=== PATIENT | female | born 1945 | race Caucasian/White ===

== ENCOUNTER 2019-02-22 14:58 | Inpatient (IN) | payer MEDICARE, BC ==
[~2019-02-22] VITALS: Ht 160 cm; Wt 70.1 kg
[2019-02-22] MEDS ORDERED: COREG 6.256.25 MG/TA PO (16:08)
[2019-02-22] MEDS ORDERED: NORCO 325 MG-51 TAB PO (16:10)
[2019-02-22] MEDS ORDERED: TYLENOL 500MG500 MG PO (16:11)
[2019-02-22] MEDS ORDERED: ASPIRIN 81M81 MG/TA2 PO (16:13)
[2019-02-22] MEDS ORDERED: CALCIUM CARBON650 M2 PO (16:14)
[2019-02-22] MEDS ORDERED: CATAPRES0.2 MG PO (16:15)
[2019-02-22] MEDS ORDERED: PREMARIN .3MG0.3 MG PO (16:18)
[2019-02-22] MEDS ORDERED: MAXZIDE-25MG TA1 TAB PO (16:22)
[2019-02-22] MEDS ORDERED: BONIVA150 MG PO (16:24)
[2019-02-22] MEDS ORDERED: COZAAR100 MG PO (16:25)
[2019-02-22] MEDS ORDERED: MAGNESIUM250 M1 PO (16:26)
[2019-02-22] MEDS ORDERED: MOBIC 7.5MG7.5 MG PO (16:28)
[2019-02-22] MEDS ORDERED: METAXALL800 MG PO (16:29)
[2019-02-22] MEDS ORDERED: MULTI VITAMINS1 TAB PO (16:29)
[2019-02-22] MEDS ORDERED: PRILOSEC 20MG20 MG PO (16:30)
[2019-02-22] MEDS ORDERED: SYSTANE BALANCE10 M1 OP (16:32)
[2019-02-22] MEDS ORDERED: TURMERIC500 MG PO (16:35)
[2019-02-22] MEDS ORDERED: DOXYCYCLINE 10100 MG PO (16:37)
[2019-02-22 16:41] VITALS: BP 189/94; PULSE 69; TEMP 98.3
--- NOTE | 2019-02-22 18:30 | NUR ---
Patient has been doing ok since arriving to hospital via EMS. Her pain seems better controlled since her splint was removed and the bucks traction placed. IVF's infusing. She had one dose of morphine and is resting at this time. She has not vomitted anymore since first arriving to the hospital. Oriented patient to room. She is more alert at this time. She will be having surgery tomorrow. She is aware she is NPO after midnight but since she has had continuous N/V since she got her first dose of pain medications this morning, she is not wanting to eat at this time. No other changes at this time. Call light within reach.
[2019-02-22 19:42] VITALS: BP 158/63; PULSE 67; TEMP 98
--- NOTE | 2019-02-22 20:30 | NUR ---
Pt. laying in bed at this time. Pt. is A&OX3, assessment complete. IV to rt. forearm patent. Pt. reports nausea not as bad but still there. Pt. would like to hold off on taking pills at this time. [place] traction to rle. Pt. denies further needs at this time. Call light within reach.
[2019-02-22 23:35] VITALS: BP 157/67; PULSE 75; TEMP 99.8
[2019-02-23] VITALS (10 sets, daily range): BP systolic 129–181; BP diastolic 62–86; PULSE 60–79; TEMP 72–98.9
[2019-02-23 06:57] LABS: BASO % 0.2 % (0.0-2.0); EOS # 0.1 (0.0-0.7); EOS % 1.2 % (0-4.0); GRAN # 8.2 (1.4-6.5); GRAN % 72.4 % (42.2-75.2); HEMATOCRIT 40.1 % (37.0-47.0); HEMOGLOBIN 13.5 g/dl (12.5-16.0); LYMPH % 17.4 % (20.0-51.0); MEAN CELL VOLUME 91 fl (80.0-100.0); MEAN CORPUSCULAR HEMOGLOBIN 31 pg (27.0-31.0); MEAN CORPUSCULAR HGB CONC 34 g/dl (33.0-37.0); MEAN PLATELET VOLUME 9.3 fl (7.4-10.4); MONO # 0.9 (0.1-0.6); MONO % 8.2 % (1.7-9.3); PLATELET COUNT 275 K/mm3 (130-400); REDCELL DISTRIBUTION WIDTH-CV 13.2 % (11.5-14.5)
[2019-02-23 07:25] LABS: CALCIUM 8.7 mg/dL (8.4-10.2); CREATININE, serum 0.68 (0.52-1.25); MAGNESIUM 1.9 mg/dL (1.6-2.3); POTASSIUM 3.5 mmol/L (3.4-5.0)
--- NOTE | 2019-02-23 07:48 | NUR ---
REPORT FROM ELLA QUINONEZ.
--- NOTE | 2019-02-23 11:13 | NUR ---
HOSPITALIST HAS CLEARED PT FOR SURGERY LATER THIS PM WITH DR. MARTI MEDS GIVEN ORDERED .
--- NOTE | 2019-02-23 17:22 | NUR ---
PT TO ROOM 325 PER BED. WITH REPORT FROM FLORENTIN QUINONEZSHEET MILL SUPERVISOR @ [id number]. PT IS A/O X3, SCD PLACED BILATERALLY. IV TO PUMP. RIGHT LEG WITH 3 PUNCTURE SITES COVERED IN GAUZE AND TEGADERM CDI. PT DENIES PAIN .
--- NOTE | 2019-02-23 19:17 | NUR ---
REPORT TO MARIA L RN.
--- NOTE | 2019-02-23 20:45 | NUR ---
Pt. sitting up in bed at this time. Pt. is A&OX3, assessment complete. INT to lt. hand started. Rt. forearm site discontinued d/t leaking. Dressing to rt. hip CDI. Pt. reports pain at a 3 at this time. Pt. would like pain medication before going to bed. Will give when pt. requests. Pt. denies further needs, at this time. Call light within reach.
[2019-02-24] VITALS (7 sets, daily range): BP systolic 104–142; BP diastolic 49–82; PULSE 64–70; TEMP 97.9–98.3
[2019-02-24 06:13] LABS: HEMATOCRIT 33.5 % (37.0-47.0); HEMOGLOBIN 11.2 g/dl (12.5-16.0)
--- NOTE | 2019-02-24 12:40 | NUR ---
ZAIDA met with the patient to discuss a discharge plan. The pt lives alone in [place] [facility] with a [place] address. The pt's brother has been staying with her since April recovering from health issues. The pt has a cane and walker but does not use them. The pt reports she is active. The pt's PCP is Dr. Fallon and pt receives medications from [facility] in [place] with no difficulties. The pt would like to have home health PT services with [facility] . ZAIDA to fax referral to Ginna ; Miguel from [facility] reports Ginna will review the referral on Tuesday morning. The pt does not have advanced directives in the EMR but reports she does have them completed and designate her son, Freddie . The pt plans to return home with home health or outpatient PT services through [facility]; has transportation home and has a supportive social [place]. ZAIDA will continue to follow.
--- NOTE | 2019-02-24 18:38 | NUR ---
Patient has done well throughout the day. Has been up ambulating with walker, steady gait. Gutiérrez catheter discontinued at 1400, 10 ml aspirated from balloon, tolerated procedure well. Voided this afternoon without difficulty. Patient has been up to recliner for all meals. Patient showered this AM. Redressed sites to right hip/knee with xeroform, gauze and tegader. Denies further needs at this time. Will report off to shift mechanic.
--- NOTE | 2019-02-24 21:39 | NUR ---
PATIENT TAKES HS MEDS INCLUDING NORCO 7.5MG 1 TAB AT THIS TIME. DRSG'S INTACT TO RIGHT KNEE, OUTER KNEE AND RT HIP. REPORTS PAIN 6/10 TO RIGHT LEG. IS ALERT AND ORIENTED X4. SL TO LEFT HAND.
[2019-02-25 03:29] VITALS: BP 115/47; PULSE 64; TEMP 97.9
--- NOTE | 2019-02-25 03:34 | NUR ---
Patient reports pain to right leg 6/10, asking for Harrison. Medicated with Harrison 7.5mg 1 tab po at this time, patient does not want 2 tabs.
--- NOTE | 2019-02-25 06:00 | NUR ---
Takes AM med without problem. Reports good sleep after pain pills.
[2019-02-25 06:18] LABS: BASO % 0.3 % (0.0-2.0); EOS # 0.1 (0.0-0.7); EOS % 1.5 % (0-4.0); GRAN # 5.9 (1.4-6.5); GRAN % 60.8 % (42.2-75.2); LYMPH # 2.5 (1.2-3.4); LYMPH % 26.2 % (20.0-51.0); MEAN CELL VOLUME 93 fl (80.0-100.0); MEAN CORPUSCULAR HGB CONC 33 g/dl (33.0-37.0); MEAN PLATELET VOLUME 9.4 fl (7.4-10.4); MONO % 9.9 % (1.7-9.3); PLATELET COUNT 195 K/mm3 (130-400); RED BLOOD COUNT 3.15 M/mm3 (4.10-5.30); REDCELL DISTRIBUTION WIDTH-CV 13.4 % (11.5-14.5)
[2019-02-25 06:22] LABS: HEMATOCRIT 29.4 % (37.0-47.0); HEMOGLOBIN 9.7 g/dl (12.5-16.0); MEAN CORPUSCULAR HEMOGLOBIN 31 pg (27.0-31.0)
[2019-02-25 06:38] LABS: CALCIUM 9.2 mg/dL (8.4-10.2); CREATININE, serum 0.67 (0.52-1.25); MAGNESIUM 1.5 mg/dL (1.6-2.3); POTASSIUM 3.9 mmol/L (3.4-5.0)
[2019-02-25 07:42] VITALS: BP 117/51; PULSE 59; TEMP 97.5
--- NOTE | 2019-02-25 09:19 | NUR ---
PATIENT UP TO CHAIR. LEGS UP. EATING BREAKFAST. MORNING MEDS GIVEN. MAGNESIUM GIVEN PER DOCTORS ORDERS FOR LOW MAGNESIUM. POTASSIUM EFFER K GIVEN PER POTASSIUM PROTOCOL. DENIES NEED FOR PAIN MEDICATION AT TIME. WILL CONTINUE TO MONITOR.
[2019-02-25 12:37] VITALS: BP 117/43; PULSE 56; TEMP 97.8
[2019-02-25 16:49] VITALS: BP 128/57; PULSE 62; TEMP 98.1
--- NOTE | 2019-02-25 18:29 | NUR ---
patient in chair. legs elevated. took 1 norco for prn pain. states that pain is increasing after ambulating previously. patient refused carvedilol because her bp was too low and she did not feel good early after taking it. no further needs at this time. will continue to monitor.
[2019-02-25 20:36] VITALS: BP 112/55; PULSE 65; TEMP 98.5
[2019-02-26 00:24] VITALS: BP 95/29; PULSE 62; TEMP 98.3
[2019-02-26 04:11] VITALS: BP 109/44; PULSE 60; TEMP 98.1
--- NOTE | 2019-02-26 06:50 | NUR ---
awake resting in bed, bedside shift report received from CRISTIANO Beasley
[2019-02-26 06:59] LABS: HEMOGLOBIN 10.7 g/dl (12.5-16.0); MEAN CELL VOLUME 94 fl (80.0-100.0); MEAN CORPUSCULAR HEMOGLOBIN 31 pg (27.0-31.0); MEAN CORPUSCULAR HGB CONC 33 g/dl (33.0-37.0); MEAN PLATELET VOLUME 9.5 fl (7.4-10.4); PLATELET COUNT 242 K/mm3 (130-400); RED BLOOD COUNT 3.51 M/mm3 (4.10-5.30); REDCELL DISTRIBUTION WIDTH-CV 13.4 % (11.5-14.5)
[2019-02-26 07:01] LABS: HEMATOCRIT 32.9 % (37.0-47.0)
[2019-02-26 07:19] LABS: CALCIUM 9.1 mg/dL (8.4-10.2); CREATININE, serum 0.74 (0.52-1.25); MAGNESIUM 1.5 mg/dL (1.6-2.3); POTASSIUM 3.8 mmol/L (3.4-5.0)
--- NOTE | 2019-02-26 07:20 | NUR ---
assisted up to brush her teeth, then ambulated over and sitting up in chair for breakfast, full assessment completed, see interventions for further info,
[2019-02-26 07:57] LABS: BASOPHIL 1 % (0-2); EOSINOPHIL 2 % (0-4); LYMPHOCYTE 23 % (20.0-51.0); NEUTROPHILS 68 % (42.0-75.2); PLATELET ESTIMATE NORMAL (NORMAL)
[2019-02-26 08:13] VITALS: BP 112/43; PULSE 68; TEMP 98.3
--- NOTE | 2019-02-26 08:30 | NUR ---
physical therapy in and assisted her with ambulating in the pal and now back to bed
--- NOTE | 2019-02-26 09:22 | NUR ---
[facility] for home health services. SW met with the patient to discuss home health options. Patient is agreeable to send referral to [facility]. SW to fax referral. SW will continue to follow.
--- NOTE | 2019-02-26 09:33 | NUR ---
[facility] requested nursing notes; SW faxed notes. SW will continue to follow
[2019-02-26 09:37] VITALS: BP 112/48; PULSE 69
--- NOTE | 2019-02-26 10:10 | NUR ---
c/o pain 11/17 and medicated with hydrocodone 7.5mg 1 tab
--- NOTE | 2019-02-26 11:38 | NUR ---
Dr Tillman and care team in to see patient
[2019-02-26] MEDS ORDERED: SENNA-S 50 MG-81 TAB PO (11:41)
[2019-02-26] MEDS ORDERED: ASPI325T6 PO (11:43)
[2019-02-26] MEDS ORDERED: CATAPRES 0.1MG0.1 MG PO (11:47)
[2019-02-26] MEDS ORDERED: NORCO 325 MG-7.1 TAB PO (11:48)
[2019-02-26 12:44] VITALS: BP 95/49; PULSE 73; TEMP 97.7
--- NOTE | 2019-02-26 14:02 | NUR ---
The pt is to discharge home today, 02/25 with [facility]. ZAIDA faxed discharge orders to [facility] . ZAIDA presented the IM form to the pt; pt understood and signed the form. A copy was provided to the pt; original was placed in the chart. There are no additional needs at this time.
--- NOTE | 2019-02-26 14:10 | NUR ---
medicated with hydrocodone 7.5mg 1 tab and tylenol 325mg for c/os pain to right leg and in anticipation of therapy
--- NOTE | 2019-02-26 14:30 | NUR ---
discharge instructions given to patient, verbalizes understanding
--- NOTE | 2019-02-26 14:39 | NUR ---
discharged per WC
== END 2019-02-26 14:39 | disposition home health service (06) | DRG 481 ==
LOC: SURG 14:58
PROVIDERS: Hospitalist; Physician Assistant; ADMIT Orthopaedic Surgery
PROC: 0QS836Z Reposition Right Femoral Shaft with Intramedullary Internal Fixation Device, Percutaneous Approach (ICD-10-PCS; principal; 2019-02-23 14:15)
DX: M80.051A Age-related osteoporosis with current pathological fracture, right femur, initial encounter for fracture (principal); I38 Endocarditis, valve unspecified; E87.1 Hypo-osmolality and hyponatremia; D62 Acute posthemorrhagic anemia; Z88.5 Allergy status to narcotic agent; K21.9 Gastro-esophageal reflux disease without esophagitis; I10 Essential (primary) hypertension; N95.1 Menopausal and female climacteric states; L08.9 Local infection of the skin and subcutaneous tissue, unspecified; E83.42 Hypomagnesemia
CPT/HCPCS: 99222-AI; 99231-AI; A9284; C1713; C1769; J0690; J0780; J1100; J1170; J2270; J2405; J2704; J3010; J3475; J7030

== ENCOUNTER 2020-08-18 09:20 | Day surgery (SDC) | payer MEDICARE, BC ==
[~2020-08-18] VITALS: Ht 160 cm; Wt 70.3 kg
[2020-08-18] VITALS (11 sets, daily range): BP systolic 102–178; BP diastolic 59–98; PULSE 63–75; TEMP 98.8
[~2020-08-18 09:20] MED LIST: ASPI325T6 PO; ASPIRIN 81M81 MG/TA2 PO; BONIVA150 MG PO; CALCIUM CARBON650 M2 PO; CATAPRES 0.1MG0.1 MG PO; CATAPRES0.2 MG PO; COREG 6.256.25 MG/TA PO; COZAAR100 MG PO; DOXYCYCLINE 10100 MG PO; MAGNESIUM250 M1 PO; MAXZIDE-25MG TA1 TAB PO; METAXALL800 MG PO; MOBIC 7.5MG7.5 MG PO; MULTI VITAMINS1 TAB PO; NORCO 325 MG-51 TAB PO; NORCO 325 MG-7.1 TAB PO; PREMARIN .3MG0.3 MG PO; PRILOSEC 20MG20 MG PO; SENNA-S 50 MG-81 TAB PO; SYSTANE BALANCE10 M1 OP; TURMERIC500 MG PO; TYLENOL 500MG500 MG PO
[2020-08-18 10:11] LABS: HEMATOCRIT 39.7 % (37.0-47.0); HEMOGLOBIN 13.3 g/dl (12.5-16.0); MEAN CELL VOLUME 93 fl (80.0-100.0); MEAN CORPUSCULAR HEMOGLOBIN 31 pg (27.0-31.0); MEAN CORPUSCULAR HGB CONC 34 g/dl (33.0-37.0); MEAN PLATELET VOLUME 9.3 fl (7.4-10.4); PLATELET COUNT 270 K/mm3 (130-400); RED BLOOD COUNT 4.29 M/mm3 (4.10-5.30); REDCELL DISTRIBUTION WIDTH-CV 13.2 % (11.5-14.5)
[2020-08-18] MEDS ORDERED: MAXZIDE-25MG TA1 TAB PO (10:15)
[2020-08-18] MEDS ORDERED: CALCIUM 600 MG1 EAC2 PO (10:17)
[2020-08-18 10:18] LABS: CALCIUM 9.3 mg/dL (8.4-10.2); CREATININE, serum 0.69 (0.52-1.25); POTASSIUM 3.8 mmol/L (3.4-5.0)
[2020-08-18 10:22] LABS: PROTHROMBIN TIME 10.9 SECONDS (9.7-12.8)
[2020-08-18 10:24] LABS: PARTIAL THROMBOPLASTIN TIME 31.1 SECONDS (26.0-37.0)
[2020-08-18] MEDS ORDERED: ONE-A-DAY ESSE1 EACH PO (10:31)
[2020-08-18] MEDS ORDERED: MOBIC15 MG PO ×2 (10:32→10:33)
[2020-08-18] MEDS ORDERED: PROLIA60 MG/ML SQ (10:32)
[2020-08-18] MEDS ORDERED: PREMARIN .3MG0.3 MG PO (10:33)
[2020-08-18] MEDS ORDERED: COREG12.5 MG PO (10:34)
[2020-08-18] MEDS ORDERED: NORVASC 5MG5 MG/TAB PO (10:34)
[2020-08-18] MEDS ORDERED: VITAMIN D31000 I1 PO (10:35)
[2020-08-18] MEDS ORDERED: ASPIRIN E.C. 8181 MG PO (10:54)
--- NOTE | 2020-08-18 11:49 | NUR ---
SEE MERGE DOCUMENTATION FOR MEDICATION ADMINISTRATION TIMES AND INTRA/POST PROCEDURE SEDATION ASSESSMENTS. RIGHT HAND BARBEAU TEST POSITIVE.
--- NOTE | 2020-08-18 16:30 | NUR ---
Air from TR band was removed in 2 ml increments with no bleeding from rt radial puncture site. Site was dressed with 2x2, bandaid and wrist wrapped with coban for support. Pt expresses understanding of limb use restrictions other DC instructions. IV DC'd with catheter intact, bleeding controlled at site. Pt is steady on feet in room. Has tolerated PO without issue. She is assisted out to friend's car by wheelchair with personal belongings.
== END 2020-08-18 16:32 | disposition home or self-care (01) ==
LOC: COL.CAR 09:20
PROVIDERS: Internal Medicine Cardiovascular Disease
DX: I25.10 Atherosclerotic heart disease of native coronary artery without angina pectoris (principal)
CPT/HCPCS: C1887; J1644; J2250; J7030; Q9967

== ENCOUNTER 2021-05-11 14:36 | Inpatient (IN) | payer MEDICARE, BC ==
[~2021-05-11] VITALS: Ht 157.5 cm; Wt 70.0 kg
[~2021-05-11 14:36] MED LIST changes: +ASPIRIN E.C. 8181 MG PO; +CALCIUM 600 MG1 EAC2 PO; +COREG12.5 MG PO; +MOBIC15 MG PO; +NORVASC 5MG5 MG/TAB PO; +ONE-A-DAY ESSE1 EACH PO; +PROLIA60 MG/ML SQ; +VITAMIN D31000 I1 PO
[2021-05-11 15:28] LABS: BASO # 0.1 K/mm3 (0.0-0.2); BASO % 0.8 % (0.0-2.0); EOS # 0.4 K/mm3 (0.0-0.7); EOS % 6.4 % (0-4.0); GRAN # 2.9 K/mm3 (1.4-6.5); HEMOGLOBIN 12.1 g/dl (12.5-16.0); LYMPH # 2.3 K/mm3 (1.2-3.4); LYMPH % 36.7 % (20.0-51.0); MEAN CELL VOLUME 95 fl (80.0-100.0); MEAN CORPUSCULAR HEMOGLOBIN 32 pg (27.0-31.0); MEAN CORPUSCULAR HGB CONC 34 g/dl (33.0-37.0); MEAN PLATELET VOLUME 9.4 fl (7.4-10.4); MONO # 0.6 K/mm3 (0.1-0.6); MONO % 9.6 % (1.7-9.3); PLATELET COUNT 240 K/mm3 (130-400); RED BLOOD COUNT 3.78 M/mm3 (4.10-5.30); REDCELL DISTRIBUTION WIDTH-CV 13.2 % (11.5-14.5)
[2021-05-11 15:30] LABS: HEMATOCRIT 35.9 % (37.0-47.0)
[2021-05-11 15:41] LABS: INR 1.1 (0.8-3.0); PROTHROMBIN TIME 11.9 SECONDS (9.7-12.8)
[2021-05-11 16:03] LABS: ALBUMIN 3.9 gm/dL (3.4-4.8); BILIRUBIN,TOTAL 0.5 mg/dL (0.2-1.2); CALCIUM 9.1 mg/dL (8.4-10.2); POTASSIUM 3.7 mmol/L (3.5-4.5); TOTAL PROTEIN 6.4 gm/dL (6.2-8.1)
[2021-05-11 16:34] LABS: COLLECTION METHOD CATHETER
[2021-05-11 16:40] LABS: PH 7 (5-8); SQUAMOUS EPITHELIAL 0-2 /hpf; URINE APPEARANCE Clear; URINE BACTERIA Rare /hpf; URINE BILIRUBIN Negative (NEGATIVE); URINE BLOOD Negative (NEGATIVE); URINE COLOR Straw; URINE GLUCOSE Negative (NEGATIVE); URINE KETONE Negative (NEGATIVE); URINE LEUKOCYTE ESTERASE Negative (NEGATIVE); URINE NITRATE Negative (NEGATIVE); URINE PROTEIN(semi-quant) Negative (NEGATIVE); URINE UROBILINOGEN Negative (NEGATIVE)
[2021-05-11 17:19] VITALS: BP 158/72; PULSE 62; TEMP 98.1
--- NOTE | 2021-05-11 18:00 | NUR ---
PATIENT ADMITED INTO ROOM 347 FROM ER WITH LEFT HIP FX. LLE IS INTERNALLY ROTATED AND PATIENT HAVING SEVERE PAIN. PATIENT PLACED IN TRACTION WITH 10 LBS WEIGHT PER VERBAL INSTRUCTIONS. PATIENT GIVEN LOTS OF PAIN MEDS IN ER AND RECEIVED IV PAIN MEDS BEFORE TRANSFER TO FLOOR. PATIENT BECAME NAUSEATED WITH MOVEMENT, GIVEN ZOFRAN IN ER. EMESIS BASIN AT BEDSIDE. IV FLUIDS INFUSING INTO RIGHT FORARM IV VIA PUMP. ARTEAGA TO DD WITH MOD AMOUNTS OF CLEAR YELLOW URINE NOTED. HEAD TO TOE ASSESSMENT COMPLETE. PASSENGER CAR UPHOLSTERER APPRENTICE AT BEDSIDE TO OBTAIN VITALS. PLANER OPERATOR / GRADER TO TAKE OVER.
[2021-05-11 19:08] LABS: CREATININE, serum 0.84 mg/dL (0.57-1.11)
[2021-05-11 22:15] VITALS: BP 138/66; PULSE 72; TEMP 97.8
[2021-05-12] VITALS (13 sets, daily range): BP systolic 104–145; BP diastolic 54–70; PULSE 16–71; TEMP 64–981
[2021-05-12] MEDS ORDERED: LIPITOR 10MG10 MG PO (04:11)
--- NOTE | 2021-05-12 06:29 | NUR ---
PT HAD SEVERAL EPISODES OF EMESIS THIS SHIFT, IMPROVED AFTER IV PHENERGAN GIVEN @0345, PAIN CONTROLLED WITH MORPHINE Q2PRN, REMAINS IN 10 LBS BUCKS TRACTION, IVF INFUSING PER PIV @75CC/HR, NPO FOR SURGERY TODAY. ARTEAGA TO DD WITH 1825 CC CLEAR YELLOW URINE OUT THIS SHIFT. PT'S HOME MEDS SENT TO PHARMACY WITH AIRLINE MANAGERIAL SUPERVISOR. VALUABLES SENT TO [facility].
[2021-05-12 06:45] LABS: BASO % 0.2 % (0.0-2.0); EOS % 0.5 % (0-4.0); GRAN # 6.7 K/mm3 (1.4-6.5); GRAN % 76.3 % (42.2-75.2); HEMOGLOBIN 11.5 g/dl (12.5-16.0); LYMPH # 1.3 K/mm3 (1.2-3.4); LYMPH % 14.8 % (20.0-51.0); MEAN CELL VOLUME 94 fl (80.0-100.0); MEAN CORPUSCULAR HEMOGLOBIN 32 pg (27.0-31.0); MEAN CORPUSCULAR HGB CONC 34 g/dl (33.0-37.0); MEAN PLATELET VOLUME 9.6 fl (7.4-10.4); MONO # 0.7 K/mm3 (0.1-0.6); PLATELET COUNT 220 K/mm3 (130-400); RED BLOOD COUNT 3.63 M/mm3 (4.10-5.30); REDCELL DISTRIBUTION WIDTH-CV 13.1 % (11.5-14.5)
[2021-05-12 06:46] LABS: HEMATOCRIT 34.1 % (37.0-47.0)
[2021-05-12 07:18] LABS: CALCIUM 8.4 mg/dL (8.4-10.2); CREATININE, serum 0.7 mg/dL (0.57-1.11); POTASSIUM 3.2 mmol/L (3.5-4.5)
--- NOTE | 2021-05-12 10:32 | NUR ---
PT A/O X3, DR REYNOSO IN TO SEE PT THIS AM. CONSENT SIGNED ON CHART. PT OPTIMIZED FOR SURGERY. PT TO SURGERY AT THIS TIME WITH CRISTÓBAL. ASSESSMENTS CATHERINE, RHONAS, IV TO RW.
--- NOTE | 2021-05-12 11:12 | NUR ---
Collet Gluer met with patient to discuss discharge planning. Patient to have surgery today. Patient lives [place] [facility] and advised she sees Dr. Fallon for primary care. Patient obtains medications from [facility] in [place] with no difficulties. Patient has a walking stick, cane and walker at home and reports she uses her walking stick to walk down her driveway to get the mail. Patient reports she is independent with ADLS. Patient advised she has DPOA-HC completed which designates her son, Freddie. Patient has three sons: Freddie, Eliceo (ph#[phone]), and Kosta. Patient reports Eliceo is the best person to contact. Patient states she plans to return home if able as she reports that she has a lot of family support and many friends who are retired nurses that can provide her with asssitance. Patient states she was used [facility] in the past and would use them again. Patient did state she may be open to post acute rehab if recommended, but feels she will have enough help so she can return home. Discharge Plan: Home pending PT/OT recommendations
--- NOTE | 2021-05-12 14:54 | NUR ---
PT TO ROOM 347 PER BED WITH REPORT FROM SANDRA KNOCK UP ASSEMBLER@[id number], LEFT HIP CDI WITH GAUZE AND TEGADERM X3. TEDS PLACED BILATERALLY. IV TO PUMP PER ORDERS. PT IS A/O X3. PTS FRIEND AT BEDSIDE.
--- NOTE | 2021-05-12 23:03 | NUR ---
IV ACCESS HARD TO OBTAIN X 5 STICKS, PT REQ TO TAKE ANTIBOTIC ORAL. SHARON JIMÉNEZ CALLED AND APPOVES TO CONVERT TO ORAL. NO IV.
[2021-05-13 03:24] VITALS: BP 115/55; PULSE 70; TEMP 98.5
[2021-05-13 06:40] LABS: BASO % 0.1 % (0.0-2.0); GRAN # 6.7 K/mm3 (1.4-6.5); LYMPH # 0.9 K/mm3 (1.2-3.4); LYMPH % 10.7 % (20.0-51.0); MEAN CELL VOLUME 93 fl (80.0-100.0); MEAN CORPUSCULAR HEMOGLOBIN 32 pg (27.0-31.0); MEAN CORPUSCULAR HGB CONC 35 g/dl (33.0-37.0); MEAN PLATELET VOLUME 9.5 fl (7.4-10.4); MONO # 0.7 K/mm3 (0.1-0.6); MONO % 8.5 % (1.7-9.3); PLATELET COUNT 204 K/mm3 (130-400); RED BLOOD COUNT 3.13 M/mm3 (4.10-5.30)
[2021-05-13 07:00] LABS: CALCIUM 8.4 mg/dL (8.4-10.2); CREATININE, serum 0.67 mg/dL (0.57-1.11); POTASSIUM 3.5 mmol/L (3.5-4.5)
[2021-05-13 07:47] VITALS: BP 138/68; PULSE 66; TEMP 98.9
--- NOTE | 2021-05-13 08:15 | NUR ---
sitting up in bed and has had breakfast and tolerated well, full assessment completed, see interventions for further info, denies pain or needs at this time, is looking forward to having therapy and getting out of bed
--- NOTE | 2021-05-13 10:15 | NUR ---
physical therapy was in and worked with patient and she is sitting up in chair now, c/o pain and medicated with hyddrocodone 5mg 1 tab
--- NOTE | 2021-05-13 11:00 | NUR ---
remains up in chair, states pain pill is reliving her pain, is readyd to go back to bed and assisted out of recliner and into bed
--- NOTE | 2021-05-13 11:45 | NUR ---
Dr Verma and care team in to see patient
[2021-05-13 12:15] VITALS: BP 135/66; PULSE 68; TEMP 97.9
--- NOTE | 2021-05-13 14:39 | NUR ---
physical therapy was in and worked with patient, then back to bed, states has not voided since catheter removed and no urge, instructed her to drink more water in order to be able to void and not replace catheter, verbalizes understanding
[2021-05-13 15:43] VITALS: BP 128/55; PULSE 65; TEMP 98.5
--- NOTE | 2021-05-13 16:14 | NUR ---
Account Leader met with patient to follow up on PT recommendation for IPR vs Home with Home Health and family support. Patient is open to an IPR screen and advised if they cannot accept, she will return home with HH services. Patient states she has friends and family that can stay with her if needed. SW provided list of HH agencies that serve the [facility]. ZAIDA contacted [facility] IPR Director and gave referral. Discharge Plan: IPR vs Home Health
--- NOTE | 2021-05-13 16:30 | NUR ---
assisted up to bathroom by CRISTIANO Crocker and was able to void
--- NOTE | 2021-05-13 18:54 | NUR ---
bedside shift report given to CRISTIANO Waggoner
[2021-05-13 19:14] VITALS: BP 133/61; PULSE 67; TEMP 98.9
[2021-05-13 23:07] VITALS: BP 135/64; PULSE 64; TEMP 98.5
[2021-05-14 03:09] VITALS: BP 142/71; PULSE 62; TEMP 98.6
--- NOTE | 2021-05-14 06:37 | NUR ---
PT HAS DONE WELL THROUGH NIGHT, LIGHTLY SNORES WHEN SLEEPING. PT STATES THAT PAIN IS MILD UNTIL SHE IS UP ET WALKING. WHILE IN BED, PT REQUIRES ASSISTANCE TO LIFT HER LEG TO TURN HERSELF. DRESSING CDI.
[2021-05-14 06:45] LABS: BASO % 0.4 % (0.0-2.0); EOS # 0.2 K/mm3 (0.0-0.7); EOS % 2.7 % (0-4.0); GRAN # 4.7 K/mm3 (1.4-6.5); GRAN % 56.9 % (42.2-75.2); LYMPH # 2.5 K/mm3 (1.2-3.4); LYMPH % 30.6 % (20.0-51.0); MEAN CELL VOLUME 95 fl (80.0-100.0); MEAN CORPUSCULAR HGB CONC 33 g/dl (33.0-37.0); MEAN PLATELET VOLUME 9.8 fl (7.4-10.4); MONO # 0.7 K/mm3 (0.1-0.6); MONO % 8.9 % (1.7-9.3); PLATELET COUNT 197 K/mm3 (130-400); RED BLOOD COUNT 2.98 M/mm3 (4.10-5.30); REDCELL DISTRIBUTION WIDTH-CV 13.2 % (11.5-14.5)
[2021-05-14 06:46] LABS: HEMATOCRIT 28.3 % (37.0-47.0); HEMOGLOBIN 9.4 g/dl (12.5-16.0); MEAN CORPUSCULAR HEMOGLOBIN 32 pg (27.0-31.0)
[2021-05-14 07:11] LABS: CREATININE, serum 0.7 mg/dL (0.57-1.11); POTASSIUM 3.4 mmol/L (3.5-4.5)
[2021-05-14 07:14] VITALS: BP 139/65; PULSE 60; TEMP 98.7
--- NOTE | 2021-05-14 08:00 | NUR ---
PATIENT IS A&O. VSS. REPORTS MILD DISCOMFORT IN LLE AT REST. LEFT HIP DRESSINGS ARE CD&I WITH GAUZE & TEGADERM. TEDS & SCD'S TO BLE. POSITIVE PEDAL PULSES TO BLE. PATIENT EAT/DRINK/VOIDING SUFFICENT AMOUNTS. HEAD TO TOE ASSESSMENT COMPLETE. STUDENT NURSE WORKING WITH PATIENT TODAY, SEE CHARTING. PATIENT TO POSSIBLY DISCHARGE TO [facility] TODAY.
[2021-05-14] MEDS ORDERED: ASPI325T6 PO (09:05)
[2021-05-14] MEDS ORDERED: COZAAR 25MG25 MG/TAB PO (09:05)
[2021-05-14] MEDS ORDERED: NORCO 325 MG-7.1 TAB PO (09:30)
--- NOTE | 2021-05-14 11:01 | NUR ---
Peripheral IV placed in right forearm. 22g catheter used
--- NOTE | 2021-05-14 11:13 | NUR ---
Manager Collection collaborated with Vicki, IPR Director who advised she can accept patient today and that patient is agreeable to IPR. Patient to discharge to IPR today.
[2021-05-14 12:31] VITALS: BP 141/66; PULSE 60; TEMP 97.8
--- NOTE | 2021-05-14 15:10 | NUR ---
PATIENT DISCHARGING TO [facility] PER ORDERS. PATIENT & BELONINGS MOVED TO NEW ROOM 336. PATIENT DISCHARGED.
== END 2021-05-14 15:10 | DRG 481 ==
LOC: COL.ER 14:36 → SURG 16:29
PROVIDERS: Orthopaedic Surgery; Physician Assistant; ADMIT Internal Medicine
PROC: 0QS936Z Reposition Left Femoral Shaft with Intramedullary Internal Fixation Device, Percutaneous Approach (ICD-10-PCS; principal; 2021-05-12 11:00)
DX: S72.302A Unspecified fracture of shaft of left femur, initial encounter for closed fracture (principal); E87.1 Hypo-osmolality and hyponatremia; M81.0 Age-related osteoporosis without current pathological fracture; I10 Essential (primary) hypertension; I25.10 Atherosclerotic heart disease of native coronary artery without angina pectoris; K21.9 Gastro-esophageal reflux disease without esophagitis; E78.5 Hyperlipidemia, unspecified; G62.9 Polyneuropathy, unspecified; D64.9 Anemia, unspecified; E87.6 Hypokalemia; E83.42 Hypomagnesemia; Z20.822 Contact with and (suspected) exposure to COVID-19; W18.30XA Fall on same level, unspecified, initial encounter; Y93.89 Activity, other specified; Y92.520 Airport as the place of occurrence of the external cause; Z23 Encounter for immunization; Z79.82 Long term (current) use of aspirin
CPT/HCPCS: 99223-AI; 99232-AI; 99239; A9284; C1713; J0690; J1170; J2250; J2270; J2370; J2405; J2550; J2704; J3475; J7030; J7050

== ENCOUNTER 2021-05-14 11:44 | Inpatient (IN) | payer MEDICARE, BC ==
[~2021-05-14] VITALS: Ht 157.5 cm; Wt 73.2 kg
[~2021-05-14 11:44] MED LIST changes: +COZAAR 25MG25 MG/TAB PO; +LIPITOR 10MG10 MG PO
--- NOTE | 2021-05-14 17:35 | NUR ---
Patient sitting up in the recliner, A&Ox4. VSS. Denies pain and discomfort. Has personal belongings needing to go into the hospital safe. Master Cosmetologist aware. No further needs expressed. Call light within reach
[2021-05-14 18:00] VITALS: BP 125/55; PULSE 59; TEMP 99.1
--- NOTE | 2021-05-14 20:00 | NUR ---
PT RESTING IN BED. SEE MAR FOR PAIN MEDS GIVEN FOR LLE PAIN. CALL LIGHT IN REACH. BED ALARM SET.
[2021-05-15 05:05] VITALS: BP 105/46; PULSE 61; TEMP 98.3
--- NOTE | 2021-05-15 06:41 | NUR ---
shift report received from CRISTIANO Wayne
--- NOTE | 2021-05-15 08:00 | NUR ---
had breakfast and tolerated well, assisted up to bathroom and moves with slow steady gait, c/o pain while resting but states it is 8-9/10 while up, medicated with hydrocodone 5mg 1 tab, full assessment completed, see interventions for further info,
--- NOTE | 2021-05-15 08:15 | NUR ---
occupational therapy in to work with patient
--- NOTE | 2021-05-15 09:10 | NUR ---
Dr Goins in to see patient
--- NOTE | 2021-05-15 09:26 | NUR ---
resting in bed with eyes closed after completing occupational therapy
--- NOTE | 2021-05-15 11:15 | NUR ---
physical therapy in to work with patient
--- NOTE | 2021-05-15 12:00 | NUR ---
up in chair waiting for lunch, c/o pain 4/10 while resting and 8/10 when ambulating, medicated with hydrocodone 7.5mg 1 tab
--- NOTE | 2021-05-15 12:55 | NUR ---
had lunch and is now resting in recliner and appears to be dozing,
--- NOTE | 2021-05-15 14:13 | NUR ---
PATIENT LEAVING UNIT WITH PHYSICAL THERAPY.
--- NOTE | 2021-05-15 16:03 | NUR ---
PT REQUESTING SOMETHING BESIDES NORCO FOR PAIN. PT STATES THAT THE NORCO MAKES HER CLOUDY ET THAT IT'S TIME THAT SHE STOP TAKING IT. PT IS AGREEABLE TO TAKING TYLENOL, WILL ADMINISTER PO.
--- NOTE | 2021-05-15 16:10 | NUR ---
Mortgage Loan Specialist met with patient to complete intake as she is new to [facility]. Patient lives [place] [facility] and sees Dr. Fallon for primary care. Patient obtains medications from [facility] in [place] and reports she has a walking stick, cane, and front wheeled walker at home. Patient is normally independent with ADLS. Patient has three sons: Freddie, Eliceo, and Kosta. Patient advised she plans to move to [place], [place] sometime next year to be closer to her son. Patient states she just recently bought a home there. SW will continue to follow for discharge needs.
[2021-05-15 17:42] VITALS: BP 111/66; PULSE 65; TEMP 98.1
--- NOTE | 2021-05-15 19:20 | NUR ---
RECEIVED CHANGE OF SHIFT REPORT FROM DAY SHIFT NURSE.
[2021-05-16 05:41] VITALS: BP 121/66; PULSE 67; TEMP 98.1
--- NOTE | 2021-05-16 06:30 | NUR ---
Report received from CRISTIANO Aden. Patient is sitting on side of bed and states her pain is 5/10. Patient is A & O x 3. Call light and bedside table are within reach. Will continue to monitor patient throughout shift.
--- NOTE | 2021-05-16 07:26 | NUR ---
CHANGE OF SHIFT REPORT GIVEN TO DAY SHIFT NURSE, KIA QUINONEZ.
--- NOTE | 2021-05-16 07:30 | NUR ---
Patient c/o being nausea but did not want anything for it at this time. Patient has a basin in case she needs it for emesis. This nurse told patient she would have hospitalist to order Zofran. Patient has concerns that taking the Zofran with pain medications will make her sleep. Call light and bedside table are within reach. Will continue to monitor patient throughout shift.
--- NOTE | 2021-05-16 12:00 | NUR ---
This nurse called hospitalist Ricky to request an order for Zofran which was placed.
[2021-05-16 18:02] VITALS: BP 109/51; PULSE 65; TEMP 98
--- NOTE | 2021-05-16 18:55 | NUR ---
RECEIVED CHANGE OF SHIFT REPORT FROM DAY SHIFT NURSE. PATIENT RESTING IN BED DURING REPORT. CALL LIGHT WITHIN REACH, BED ALARM ON.
--- NOTE | 2021-05-16 20:07 | NUR ---
REQUESTED AND GIVEN TRAMADOL AND MECLIZINE AT THIS TIME, SEE MAR. PATIENT REPORTS THAT SHE IS ABLE TO AMBULATE "BETTER THAN BEFORE". DENIES CHEST PAIN/NAUSEA AT THIS TIME. 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 BED ALARM ON WHEN IN BED, CALL LIGHT WITHIN REACH.
--- NOTE | 2021-05-16 23:40 | NUR ---
PATIENT SLEEPING, DOES NOT WAKE WHEN ROOM ENTERED BY NURSING STAFF ON ROUNDS. BREATHING NONLABORED AND EVEN ON OBSERVATION. BED ALARM ON WITH CALL LIGHT WITHIN REACH.
--- NOTE | 2021-05-17 01:37 | NUR ---
PATIENT SLEEPING, DOES NOT WAKE WHEN NURSING STAFF ENTER ROOM ON ROUNDS. CALL LIGHT WITHIN REACH, BED ALARM ON.
--- NOTE | 2021-05-17 02:34 | NUR ---
Patient care, medication administration and nursing documentation occurred during a Daylight Savings Time Change.
[2021-05-17 04:27] VITALS: BP 147/70; PULSE 65; TEMP 97.7
--- NOTE | 2021-05-17 06:55 | NUR ---
CHANGE OF SHIFT REPORT GIVEN TO DAY SHIFT NURSE, KIA QUINONEZ.
--- NOTE | 2021-05-17 07:17 | NUR ---
Report received from CRISTIANO Aden. Patient is awake in bed and requested to go to bathroom, put her pants on, and sit in recliner. Patient states her pain level is 4/10 but is too soon for pain medication. Call light and bedside table are within reach. Will continue to monitor patient throughout shift.
[2021-05-17 18:08] VITALS: BP 138/64; PULSE 65; TEMP 98.5
--- NOTE | 2021-05-17 18:51 | NUR ---
RECEIVED CHANGE OF SHIFT REPORT FROM DAY SHIFT NURSE.
[2021-05-18 03:19] VITALS: BP 132/52; PULSE 67; TEMP 97.8
--- NOTE | 2021-05-18 06:45 | NUR ---
Report received from mary Aden. pt in bed resting, denies needs, will continue to monitor.
--- NOTE | 2021-05-18 07:09 | NUR ---
CHANGE OF SHIFT REPORT GIVEN TO DAY SHIFT NURSE, JONH QUINONEZ.
[2021-05-18 07:16] LABS: BASO # 0.1 K/mm3 (0.0-0.2); BASO % 0.6 % (0.0-2.0); EOS # 0.4 K/mm3 (0.0-0.7); GRAN # 4.3 K/mm3 (1.4-6.5); GRAN % 55.7 % (42.2-75.2); HEMATOCRIT 26.9 % (37.0-47.0); HEMOGLOBIN 9.1 g/dl (12.5-16.0); LYMPH # 2.2 K/mm3 (1.2-3.4); LYMPH % 28.7 % (20.0-51.0); MEAN CELL VOLUME 94 fl (80.0-100.0); MEAN CORPUSCULAR HEMOGLOBIN 32 pg (27.0-31.0); MEAN CORPUSCULAR HGB CONC 34 g/dl (33.0-37.0); MEAN PLATELET VOLUME 9.6 fl (7.4-10.4); MONO # 0.7 K/mm3 (0.1-0.6); MONO % 9.1 % (1.7-9.3); PLATELET COUNT 239 K/mm3 (130-400); RED BLOOD COUNT 2.85 M/mm3 (4.10-5.30); REDCELL DISTRIBUTION WIDTH-CV 13.1 % (11.5-14.5)
[2021-05-18 07:29] LABS: CALCIUM 8.9 mg/dL (8.4-10.2); CREATININE, serum 0.72 mg/dL (0.57-1.11); MAGNESIUM 1.3 mg/dL (1.6-2.6); POTASSIUM 3.8 mmol/L (3.5-4.5)
--- NOTE | 2021-05-18 08:01 | NUR ---
Assessment charted. Pt in bed resting, doing well, denies pain. Asking about dressing change to L leg and will address. Will ocnitnue to monitor.
--- NOTE | 2021-05-18 09:39 | NUR ---
Dressing changed to LLE 3 sites with telfa and tegaderm.
--- NOTE | 2021-05-18 13:25 | NUR ---
Admission QIM scores were reviewed by the team. Code of 4 chosen for oral hygiene was determined by team discussion to be the most usual performance before interventions for this patient during the assessment period. Code of 3 chosen for toilet hygiene was determined by team discussion to be the most usual performance for this patient during the assessment period. Code of 3 chosen for toileting transfers was determined by team discussion to be the most usual performance for this patient during the assessment period. Code of 2 chosen for putting on/taking off footwear was determined by team discussion to be the most usual performance for this patient during the assessment period. Code of 3 chosen for rolling left to right was determined by team discussion to be the most usual performance before interventions for this patient during the assessment period. Code of 3 chosen for sit to lying was determined by team discussion to be the most usual performance for this patient during the assessment period. Code of 3 chosen for lying to sitting on side of bed was determined by team discussion to be the most usual performance for this patient during the assessment period. Code of 3 for sit to stand was determined by team discussion to be the most usual performance for this patient during the assessment period. Code of 3 for chair/bed to chair transfers was determined by team discussion to be the most usual performance for this patient during the assessment period. Code of 88 for car transfer was determined by team discussion to be the most usual performance for this patient during the assessment period. Code of 88 chosen for walk 50 feet w/ 2 turns was determined by team discussion to be the most usual performance for this patient during the assessment period. Code of 88 chosen for walk 150 feet was determined by team discussion to be the most usual performance for this patient during the assessment period. Code of 88 chosen for walk 10 feet on uneven surface was determined by team discussion to be the most usual performance for this patient during the assessment period. Code of 6 chosen for picking up objects was determined by team discussion to be the most usual performance for this patient during the assessment period.--Vicki Oneal,
[2021-05-18 15:51] VITALS: BP 124/54; PULSE 68; TEMP 98.7
--- NOTE | 2021-05-18 18:22 | NUR ---
Pt has done well over shift. Resting in bed, enjoys bieng MOD I in room with walker. PRN pain given over shift per request. Pt anticipating dishcarge tuesday. Continues to have constipation, PRN miralax given per request. Will give reprot to nightshift nurse who will resume care.
--- NOTE | 2021-05-18 20:15 | NUR ---
Patient assessed around 1900. Alert and oriented, and able to make needs known. Complained of level 6 pain to left hip, and given PRN Ultram as requested. New ice pack for hip brought to room as well. Patient took self to bathroom and got ready for bed independently. Dressings to left hip and left knee CDI. Did not want to take them off tonight since they were just put on today. Peripheral INT to right forearm. Patient voices no questions, needs, or concerns at this time. Resting in bed with call light within reach.
[2021-05-19 03:55] VITALS: BP 121/56; PULSE 72; TEMP 98
--- NOTE | 2021-05-19 05:49 | NUR ---
Patient received PRN Ultram twice this shift for pain to left leg as requested. Has been taking self to the bathroom. Voices no questions, needs, or concerns at this time. In bed with call light within reach.
--- NOTE | 2021-05-19 06:33 | NUR ---
Report received from CRISTIANO Barroso. Patient is sitting in recliner reading and states her pain is 4/10. Call light and bedside table are within reach. Will continue to monitor patient throughout shift.
[2021-05-19] MEDS ORDERED: TYLENOL 325MG325 MG PO (12:55)
[2021-05-19] MEDS ORDERED: FERROUSAL325 MG PO (12:55)
[2021-05-19] MEDS ORDERED: K-DUR20 MEQ PO (12:56)
[2021-05-19] MEDS ORDERED: ZOFRAN ODT4 MG PO (12:58)
[2021-05-19] MEDS ORDERED: ULTRAM 50MG TAB50 MG PO (12:59)
--- NOTE | 2021-05-19 14:12 | NUR ---
Vicki, [facility] Director, notified ZAIDA that the team has a set a discharge date for Tuesday, 05/20, with home health PT/OT. ZAIDA met with the patient to review discharge plan and follow up on home health preference. The patient reports that she is ready to get home. She states that [facility] contracts with a certain home jos agency and she would like to use whichever agency that is. The patient contacted [facility] while ZAIDA was in the room. The patient was familiar with the substance abuse nurse. The substance abuse nurse reports that their therapists are contracted with [facility] The patient would like to use [facility]. ZAIDA presented and read the IM form outloud to the patient. The patient verbalized understanding and signed the form. She declined a copy. ZAIDA contacted and faxed a referral to Elizabeth at [facility] . [facility] is good to accept the patient.
[2021-05-19 18:00] VITALS: BP 142/61; PULSE 65; TEMP 97.9
--- NOTE | 2021-05-19 20:30 | NUR ---
Patient is sitting in bed, alert and oriented x 4, VSS, denies nausea or vomiting. Reports pain in her left knee. Tramadol provided. Patient independent and in good mood. Assessment completed, medications provided. No further needs at this time. Call light within reach.
[2021-05-20 05:23] VITALS: BP 147/68; PULSE 66; TEMP 98.3
--- NOTE | 2021-05-20 06:16 | NUR ---
Patient has been stable along the night. She just asked for pain medications at night. All needs met. Shift report will be given to day shift nurse.
--- NOTE | 2021-05-20 06:45 | NUR ---
Patient is resting comfortably in bed. Call light and bedside table are within reach. Will continue to monitor patient throughout shift.
--- NOTE | 2021-05-20 09:20 | NUR ---
The patient is to discharge back home today, 05/20, with home health services for fdc/PT/OT from [facility]. SW notified and faxed discharge orders to Dorys at [facility]. No additional needs at this time.
== END 2021-05-20 13:42 | disposition home health service (06) | DRG 561 ==
PROVIDERS: ADMIT Internal Medicine
DX: S72.302D Unspecified fracture of shaft of left femur, subsequent encounter for closed fracture with routine healing (principal); R26.89 Other abnormalities of gait and mobility; E83.42 Hypomagnesemia; E87.6 Hypokalemia; D64.9 Anemia, unspecified; K21.9 Gastro-esophageal reflux disease without esophagitis; I10 Essential (primary) hypertension; M81.0 Age-related osteoporosis without current pathological fracture; N95.1 Menopausal and female climacteric states; E78.5 Hyperlipidemia, unspecified; W18.39XD Other fall on same level, subsequent encounter; Y92.520 Airport as the place of occurrence of the external cause; Z73.6 Limitation of activities due to disability; Z83.3 Family history of diabetes mellitus; Z80.3 Family history of malignant neoplasm of breast; Z79.899 Other long term (current) drug therapy; Z79.891 Long term (current) use of opiate analgesic; Z79.82 Long term (current) use of aspirin; Z88.8 Allergy status to other drugs, medicaments and biological substances; Z88.1 Allergy status to other antibiotic agents; Z88.5 Allergy status to narcotic agent
CPT/HCPCS: 99222-AI; 99232-AI; 99239; J3475